=== PATIENT | female | born 1980 | race Two or more races ===

== ENCOUNTER 2019-09-24 15:26 | Emergency (ER) | payer MEDICAID ==
[~2019-09-24] VITALS: Ht 160 cm; Wt 86.2 kg
--- NOTE | 2019-09-24 15:32 | NUR ---
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 PT STATED THAT SHE IS 14 WKS . PT USED PAPERTOWEL 3 TIMES IN 25 MINS. 4, PARA 3. PT IS YAKUT SPEAKING ONLY. PT'S DAUGHTER AND GRANDSON ARE AT THE BEDSIDE. PT IS ON THE MONITOR AND CONTINUOUS PULSE OX.
--- NOTE | 2019-09-24 15:38 | NUR ---
DR MC IS AT THE BEDSIDE.
--- NOTE | 2019-09-24 15:44 | NUR ---
YANA BRODY, IS AT THE BEDSIDE.
--- NOTE | 2019-09-24 15:57 | NUR ---
TECH FINISHED AND IS SPEAKING TO THE
[2019-09-24 16:07] LABS: BASOPHILS % (AUTO) 0.5 % (0.0-2.0); EOSINOPHILS % (AUTO) 1.8 % (0.0-6.0); HEMATOCRIT 41 % (33-45); HEMOGLOBIN 13.8 g/dL (11.5-14.8); LYMPHOCYTES # (AUTO) 1.8 /CMM (0.8-4.8); LYMPHOCYTES % (AUTO) 21.3 % (20.0-44.0); MEAN CORPUSCULAR HGB CONC 34 g/dl (31.0-36.0); MEAN CORPUSCULAR VOLUME 93 fL (82-100); MONOCYTES # (AUTO) 0.5 /CMM (0.1-1.30); MONOCYTES % (AUTO) 5.3 % (2.0-12.0); NEUTROPHILS # (AUTO) 6.2 /CMM (1.8-8.9); NEUTROPHILS % (AUTO) 71.1 % (43.0-81.0); PLATELET COUNT (AUTO) 298 /CMM (150-450); RED BLOOD CELL COUNT(AUTO) 4.34 MIL/uL (4.0-5.2); WHITE BLOOD COUNT (AUTO) 8.7 K/uL (4.3-11.0)
[2019-09-24 16:12] LABS: CALCIUM, SERUM 8.9 mg/dL (8.5-10.1); CREATININE 0.7 mg/dL (0.6-1.3); POTASSIUM 3.6 mmol/L (3.5-5.1)
[2019-09-24 16:18] LABS: BILIRUBIN,TOTAL 0.2 mg/dL (0.2-1.0); TOTAL PROTEIN, SERUM 6.5 g/dL (6.4-8.2)
--- NOTE | 2019-09-24 16:34 | NUR ---
Patient discharged to home in stable condition. Written and verbal after care instructions given. Patient verbalizes understanding of instruction. Pt rec'd a copy of the US findings. Pt's is driving the pt home. VSS. pt ambulated out with a steady gait.
[2019-09-24 16:35] VITALS: BP 120/74
== END 2019-09-24 16:36 | disposition home or self-care (01) ==
LOC: ER 15:29
DX: O20.0 Threatened abortion (principal); I10 Essential (primary) hypertension; Z3A.14 14 weeks gestation of pregnancy
CPT/HCPCS: 36415; 76805-TC; 80048-TC; 80076-TC; 84702-TC; 84703-TC; 85025-TC; 85730-TC